=== PATIENT | male | born 1930 | race Caucasian/White ===

== ENCOUNTER 2017-07-07 11:12 | Emergency (ER) | payer OTHER ==
[~2017-07-07] VITALS: Ht 182.9 cm; Wt 93.0 kg
[2017-07-07] MEDS ORDERED: TETRACAINE HCL 0.5% OPTH SOLN 4 ML BTL OP ONE (11:15)
[2017-07-07] MEDS ORDERED: FLUORESCEIN SOD(OPTH) 1 MG STRP OP ONE (11:15)
[2017-07-07] MEDS ORDERED: TETRACAINE HCL 0.5% OPTH SOLN 4 ML BTL ONE (11:24)
[2017-07-07] MEDS ORDERED: FLUORESCEIN SOD(OPTH) 1 MG STRP ONE (11:25)
[2017-07-07] MEDS ORDERED: EYE IRRIGATION (OPTH) 120 ML BTL ONE (11:25)
== END 2017-07-07 11:51 | disposition home or self-care (01) ==
LOC: ER 11:14
DX: H11.31 Conjunctival hemorrhage, right eye (principal); S05.01XA Injury of conjunctiva and corneal abrasion without foreign body, right eye, initial encounter
CPT/HCPCS: 99283

== ENCOUNTER 2018-03-13 09:17 | Emergency (ER) | payer OTHER ==
[~2018-03-13] VITALS: Ht 182.9 cm; Wt 93.0 kg
--- OUTSIDE RECORDS SUMMARY | 2018-03-13 09:20 | XMS REPORT | Clinical Summary ---
Author Author [facility] Organization [facility] Address Unknown Phone Unavailable Care Team Providers Care Straightening Machine Feeder Name Role Phone Ricardo Rene MD PCP Allergies No Known Allergies Medications End Date Status Medication Sig Dispensed Refills Start Date Active multivitamin (THERAGRAN) Take 1 tablet 0 tablet by mouth daily. Active cyanocobalamin (VITAMIN Take 1,000 0 B-12) 1000 MCG tablet mcg by mouth daily. 10/07/2017 ofloxacin (FLOXIN) 0.3 % Administer 5 10 mL 0 otic solution drops to the 8 right ear 2 (two) times a day for 7 days. 10/07/2017 fluconazole (DIFLUCAN) Take 1 tablet 7 tablet 0 100 MG tablet (100 mg 8 total) by mouth daily for 7 days. Active Problems No known active problems Encounters Care Team Description Date Type Specialty Venus Strong MD Benign paroxysmal positional vertigo of right ear (Primary Dx) 10/14/2017 Office Visit Otolaryngology Venus Strong MD Benign paroxysmal positional vertigo of right ear (Primary Dx); Other infective acute otitis externa of right ear; Sensorineural hearing loss (SNHL) of both ears 09/30/2017 Office Visit Otolaryngology after 03/12/2017 Social History Date Tobacco Use Types Packs/Day Years Used Never Smoker Smokeless Tobacco: Never Used Alcohol Use Drinks/Week oz/Week Comments No Sex Assigned at Date Recorded Not on file Industry Job Start Date Occupation Not on file Not on file Not on file Travel End Travel History Travel Start No recent travel history available. Last Filed Vital Signs Time Taken Vital Sign Reading 10/14/2017 9:49 AM CDT Blood Pressure 143/74 10/14/2017 9:49 AM CDT Pulse 59 - Temperature - - Respiratory Rate - - Oxygen Saturation - - Inhaled Oxygen - Concentration 10/14/2017 9:49 AM CDT Weight 96.6 kg (213 lb) 10/14/2017 9:49 AM CDT Height 182.9 cm (6') 10/14/2017 9:49 AM CDT Body Mass Index 28.89 Plan of Treatment Health Maintenance Due Date Last Done Comments SHINGLES VACCINES (1 of 1980 2) PNEUMOCOCCAL 12/15/1995 POLYSACCHARIDE VACCINE AGE 65 AND OVER PNEUMOCOCCAL-13 12/15/1995 INFLUENZA VACCINE 10/23/2017 Results Not on fileafter 03/12/2017 Insurance Payer Benefit Subscriber ID Type Phone Address Plan / Group TEXAN[employer] TEXANPLUS xxxxxxxxx O [facility] Advance Directives Patient has advance care planning documents on file. For more information, irma ann contact: Jemal Walters [address] [place] [address]
--- NOTE | 2018-03-13 10:34 | Diagnostic Imaging Report ---
Exam: 2 view chest radiograph History: Cough, bronchitis Comparison: None. Findings: The lungs are well-inflated. There is patchy airspace disease in the lingula. No pleural effusion or pneumothorax. Tortuosity and atherosclerotic calcification of the thoracic aorta. Normal heart size. No pulmonary edema. No acute osseous abnormality. Impression: Patchy lingular airspace disease is concerning for pneumonia in the clinical setting of cough and suspected bronchitis. Follow-up chest radiograph in 8 weeks is suggested to document resolution after treatment. Signed by: Dr. Dennis Mullins M.D. on 03/13/2018 10:30 AM
== END 2018-03-13 11:15 | disposition home or self-care (01) ==
LOC: ER 09:17
DX: R05 Cough (principal); J15.9 Unspecified bacterial pneumonia
CPT/HCPCS: 71046; 99283

== ENCOUNTER 2018-03-28 13:08 | Inpatient (IN) | payer OTHER ==
[~2018-03-28] VITALS: Ht 182.9 cm; Wt 102.7 kg
--- OUTSIDE RECORDS SUMMARY | 2018-03-28 13:10 | XMS REPORT | Clinical Summary ---
Author Author [facility] Organization [facility] Address Unknown Phone Unavailable Care Team Providers Care Aperture Mask Etcher Name Role Phone Ricardo Rene MD PCP [...] both ears 09/30/2017 Office Visit Otolaryngology after 03/27/2017 Social History Date Tobacco Use Types Packs/Day [...] INFLUENZA VACCINE 10/23/2017 Results Not on fileafter 03/27/2017 Insurance Payer Benefit Subscriber ID Type Phone Address Plan / Group [employer] xxxxxxxxx O [facility] Advance Directives Patient has advance care planning documents on file. For more information, irma ann contact: Jemal Walters [address] [place] [address]
--- OUTSIDE RECORDS SUMMARY | 2018-03-28 13:11 | XMS REPORT ---
[facility] Address Unknown Phone Unavailable Care Team Providers Care Square Shear Operator Name Role Phone Camila VILLAFUERTE Unavailable Unavailable Problems This patient has no known problems. Allergies, Adverse Reactions, Alerts This patient has no known allergies or adverse reactions. Medications This patient has no known medications. Results Test Description Test Time Test Comments Text Results Atomic Results Result Comments CHEST 2 VIEWS 2018-03-13 10:28:00 [facility] [address] [address] Patient Name: BENJI MCNEILL JR MR #: [id number] : 1930 Age/Sex: 87/M Req #: [id number] [facility] Physician: Ordered by: STEFF VILLAFUERTE MD Report #: [id number] Location: ER Room/Bed: Procedure: [id number] DX/CHEST 2 VIEWS Exam Date: 03/13/18 Exam Time: 1010 REPORT STATUS: Signed Exam: 2 view chest radiograph History: Cough, bronch itis Comparison: None. Findings: The lungs are well-inflated. There is patchy airspace disease in the lingula. No pleural effusion or pneumothorax. Tortuosity and atherosclerotic calcification of the thoracic aorta. Normal heart size. No pulmonary edema. No acute osseous abnormality. Impression: Patchy lingular airspace disease is concerning for pneumonia in the clinical setting of cough and suspected bronchitis. Follow-up chest radiograph in 8 weeks is suggested to document resolution after treatment. Signed by: Dr. Miles Moe M.D. on 03/13/2018 10:30 AM Dictated By: MILES MOE MD 1030 Transcribed By: DANAY on 03/13/18 1030 COPY TO: STEFF VILLAFUERTE MD
[2018-03-28 17:03] LABS: BASOPHILS # (AUTO) 0.1 (0.0-0.1); EOSINOPHILS # (AUTO) 1.2 (0.0-0.4); EOSINOPHILS % 10.5 % (0.0-6.0); HEMATOCRIT 40.7 % (38.2-49.6); HEMOGLOBIN 14.2 g/dL (14.0-18.0); LYMPHOCYTES # (AUTO) 2.1 (1.0-3.2); LYMPHOCYTES % 18.7 % (18.0-39.1); MEAN CORPUSCULAR HEMOGLOBIN 29.3 pg (28-32); MEAN CORPUSCULAR HGB CONC 34.9 g/dL (31-35); MEAN CORPUSCULAR VOLUME 84.1 fL (81-99); MONOCYTES # (AUTO) 1.3 (0.2-0.8); MONOCYTES % 11.2 % (4.4-11.3); NEUTROPHILS # (AUTO) 6.5 (2.1-6.9); NEUTROPHILS % 58.2 % (38.7-80.0); PLATELET COUNT 275 x10e3/uL (140-360); RED BLOOD COUNT 4.84 x10e6/uL (4.3-5.7); RED CELL DISTRIBUTION WIDTH 17.7 % (11.7-14.4)
[2018-03-28 17:25] LABS: INR 0.98; PROTHROMBIN TIME 13.9 seconds (11.9-14.5)
[2018-03-28] MEDS ORDERED: PROPOFOL IV EMULSION 10 MG/ML 20 ML VIAL ONE (17:25)
[2018-03-28] MEDS ORDERED: GLYCOPYRROLATE INJ 1MG/ 5 ML SYR ONE (17:25)
[2018-03-28] MEDS ORDERED: DEXAMETHASONE SOD PHOS INJ 4 MG/ML VIAL ONE (17:25)
[2018-03-28] MEDS ORDERED: NEOSTIGMINE 5 MG/5ML SYR ONE (17:25)
[2018-03-28] MEDS ORDERED: DESFLURANE 240 ML BTL INH ONE (17:25)
[2018-03-28] MEDS ORDERED: ONDANSETRON HCL INJ 2 MG/ML VIAL ONE (17:25)
[2018-03-28] MEDS ORDERED: LIDOCAINE HCL 2% LOCAL INJ 5 ML SDV VIAL INJ ONE (17:25)
[2018-03-28] MEDS ORDERED: ROCURONIUM BROMIDE 10 MG/ML 5ML VIAL ONE (17:25)
[2018-03-28 17:26] LABS: PARTIAL THROMBOPLASTIN TIME 35.7 seconds (23.8-35.5)
[2018-03-28 17:34] LABS: ALANINE AMINOTRANSFERASE 270 IU/L (0-55); ALBUMIN 3.2 g/dL (3.5-5.0); ALBUMIN/GLOBULIN RATIO 0.7 (0.8-2.0); ALKALINE PHOSPHATASE 823 IU/L (40-150); ANION GAP 14.2 mmol/L (8-16); BLOOD UREA NITROGEN 18 mg/dL (7-26); BUN/CREATININE RATIO 20 (6-25); CALCIUM 9.7 mg/dL (8.4-10.2); CARBON DIOXIDE 24 mmol/L (22-29); CHLORIDE 100 mmol/L (98-107); CREATININE, SERUM 0.88 mg/dL (0.72-1.25); EST GLOMERULAR FILTRATION RATE > 60 ML/MIN (60-); GLUCOSE 105 mg/dL (74-118); POTASSIUM 3.2 mmol/L (3.5-5.1); SODIUM 135 mmol/L (136-145)
--- NOTE | 2018-03-28 17:57 | NUR ---
PATIENT TAKEN DIRECTLY TO CT FROM WAITING ROOM , THEN PLACED IN ROOM AT 1817
--- NOTE | 2018-03-28 19:37 | Diagnostic Imaging Report ---
EXAM: CT Abdomen and Pelvis WITH contrast INDICATION: ^Jaundice, Abdominal pain ^[id number] ^1809 COMPARISON: None. TECHNIQUE: Abdomen and pelvis were scanned utilizing a multidetector helical scanner from the lung base to the pubic symphysis after administration of IV contrast. Coronal and sagittal reformations were obtained. Dose modulation, iterative reconstruction, and/or weight based adjustment of the mA/kV was utilized to reduce the radiation dose to as low as reasonably achievable. Routine protocol was performed. Scan was performed when during portal venous phase. IV CONTRAST: 100 mL of Isovue-370 ORAL CONTRAST: Water COMPLICATIONS: None RADIATION DOSE: Total DLP: 886.26 mGy*cm Estimated effective dose: (DLP x 0.015 x size factor) mSv CTDIvol has been reviewed. It is below the limits set by the Radiation Protocol Committee (RPC). FINDINGS: LINES and TUBES: None. LOWER THORAX: Bibasilar linear atelectasis/scarring. HEPATOBILIARY: No focal hepatic lesions. No biliary ductal dilation. GALLBLADDER: Filled with sludge and small gallstones. No wall thickening. SPLEEN: No splenomegaly. PANCREAS: No focal masses or ductal dilatation. ADRENALS: No adrenal nodules KIDNEYS/URETERS: Kidneys enhance symmetrically. No hydronephrosis. No renal mass. Subcentimeter hypodensities which are too small to characterize. No stones. GI TRACT: No abnormal distention, wall thickening, or evidence of bowel obstruction. There are diverticula within the colon without evidence of diverticulitis. Appendix is normal. PELVIC ORGANS/BLADDER: Prominent prostate gland with median lobe hypertrophy and coarse calcifications. Bladder wall thickening. LYMPH NODES: No lymphadenopathy. VESSELS: There is mild atherosclerotic disease in the aorta and major arterial branches. PERITONEUM / RETROPERITONEUM: No free air or fluid. BONES: Left femoral head sclerotic focus, likely bone island. Scoliosis of the lumbar spine with multilevel advanced degenerative changes. L5 pars defects with grade 1 L5-S1 spondylolisthesis. There is loss of L5-S1 disc space. SOFT TISSUES: Unremarkable. IMPRESSION: 1. Gallbladder sludge and small gallstones. No CT evidence of cholecystitis. 2. Colonic diverticulosis without evidence of diverticulitis. 3. Prominent prostate gland. Mild bladder wall thickening could be due to chronic outflow obstruction versus cystitis in the appropriate clinical setting. Signed by: Dr. Emeterio Temple MD on 03/28/2018 7:33 PM
--- NOTE | 2018-03-28 19:43 | Diagnostic Imaging Report ---
EXAM: CT Chest WITH contrast 03/28/2018 1:56 PM INDICATION: ^HIckups , requested by patient's PCP ^[id number] ^1810 COMPARISON: Chest x-ray dated 03/13/2018 TECHNIQUE: Chest was scanned utilizing a multidetector helical scanner from the lung apex through the level of the adrenal glands without administration of IV contrast. Coronal and sagittal reformations were obtained. Routine protocol was performed. IV CONTRAST: 100 mL of Isovue-370 COMPLICATIONS: None RADIATION DOSE: Total DLP: 886.26 mGy*cm Estimated effective dose: (DLP x 0.014 x size factor) mSv CTDIvol has been reviewed. It is below the limits set by the Radiation Protocol Committee (RPC). FINDINGS: LINES/ TUBES: None. LUNGS AND AIRWAYS: Mild biapical scarring. Cluster of tiny inferior right upper lobe tree-in-bud nodules (series 4, image 66). Mild bronchial wall thickening. Mild bilateral lower lobe linear atelectasis/scarring. Airways are normal. PLEURA: The pleural spaces are clear. HEART AND MEDIASTINUM: The thyroid gland is normal. No mediastinal, hilar or axillary lymphadenopathy. The heart is normal in size.. There is no pericardial effusion. There are mild atherosclerotic calcifications in the aorta and coronary arteries. UPPER ABDOMEN: Unremarkable. BONES: Degenerative changes of thoracic spine. SOFT TISSUES: Unremarkable. IMPRESSION: Mild bronchial wall thickening and a small cluster of tiny probably tree-in-bud nodules in right upper lobe, concerning for mild infectious/inflammatory process. Signed by: Dr. Emeterio Temple MD on 03/28/2018 7:40 PM
[2018-03-28 20:19] LABS: AMYLASE 91 U/L (25-125); LIPASE 29 U/L (8-78)
[2018-03-28] MEDS ORDERED: MORPHINE SULFATE 2 MG/ML SYR IV PRN (21:45)
[2018-03-28] MEDS ORDERED: ONDANSETRON HCL INJ 2 MG/ML VIAL IV PRN (21:45)
[2018-03-28] MEDS ORDERED: IOPAMIDOL 370 MG/ML 200 ML INFUS..BTL INJ ONE (21:58)
[2018-03-28] MEDS ORDERED: SODIUM CHLORIDE 0.9% 50ML 50 ML ONE (21:58)
[2018-03-28] MEDS ORDERED: MORPHINE SULFATE INJ 4 MG/ML INJ IV PRN (22:00)
--- OUTSIDE RECORDS SUMMARY | 2018-03-28 22:26 | XMS REPORT | Clinical Summary ---
Author Author [facility] Organization [facility] Address Unknown Phone Unavailable Care Team Providers Care Saw Repairer Name Role Phone Ricardo Rene MD PCP [...] Plan / Group [employer] TEX[employer] xxxxxxxxx O [facility] Advance Directives Patient has advance care planning documents on file. For more information, irma ann contact: Jemal Walters [address] [place] [address]
--- NOTE | 2018-03-28 22:55 | NUR ---
received patient aaox3, jaundiced, skin intact, small scab/abrasion to left calf. denies any pain. breathing is even and unlabored on RA. per ER, all STAT consults have been called. patient denies any PMH, except episode of vertigo. see chart for PSH. denies any home medications. denies any allergies to medications or food. updated on plan of care. patient understands NPO after midnight status. no needs voiced at this time. bed locked, lowest position, call light within easy reach, bed alarm on. fall risk band applied, yellow non-slip socks applied. encouraged to call for assistance as needed, patient verbalized understanding. will continue to monitor the patient.
[2018-03-28] MEDS: SODIUM CHLORIDE 0.9% 1000ML 1,000 ML IV SCH (23:00)
[2018-03-28] MEDS: PIPER-TAZ 3.375 GM 50 ML IV SCH (23:00)
[2018-03-28 23:12] VITALS: BP 146/75
[2018-03-28 23:22] VITALS: BP 146/75
[2018-03-29] VITALS (8 sets, daily range): BP systolic 121–166; BP diastolic 61–76
[2018-03-29] MEDS: PIPER-TAZ 3.375 GM 50 ML IV SCH ×3 (05:33→21:49)
[2018-03-29 06:11] LABS: BASOPHILS # (AUTO) 0.1 (0.0-0.1); EOSINOPHILS # (AUTO) 1.3 (0.0-0.4); HEMATOCRIT 35.8 % (38.2-49.6); HEMOGLOBIN 12.6 g/dL (14.0-18.0); LYMPHOCYTES # (AUTO) 1.6 (1.0-3.2); LYMPHOCYTES % 16.8 % (18.0-39.1); MEAN CORPUSCULAR HGB CONC 35.2 g/dL (31-35); MEAN CORPUSCULAR VOLUME 82.3 fL (81-99); MONOCYTES # (AUTO) 1.2 (0.2-0.8); MONOCYTES % 11.8 % (4.4-11.3); NEUTROPHILS # (AUTO) 5.5 (2.1-6.9); NEUTROPHILS % 56.8 % (38.7-80.0); PLATELET COUNT 257 x10e3/uL (140-360); RED BLOOD COUNT 4.35 x10e6/uL (4.3-5.7); RED CELL DISTRIBUTION WIDTH 17.6 % (11.7-14.4)
[2018-03-29 06:35] LABS: ALANINE AMINOTRANSFERASE 201 IU/L (0-55); ALBUMIN 2.4 g/dL (3.5-5.0); ALBUMIN/GLOBULIN RATIO 0.7 (0.8-2.0); ALKALINE PHOSPHATASE 635 IU/L (40-150); ANION GAP 11.2 mmol/L (8-16); BLOOD UREA NITROGEN 16 mg/dL (7-26); BUN/CREATININE RATIO 20 (6-25); CALCIUM 8.8 mg/dL (8.4-10.2); CARBON DIOXIDE 24 mmol/L (22-29); CHLORIDE 105 mmol/L (98-107); CREATININE, SERUM 0.82 mg/dL (0.72-1.25); EST GLOMERULAR FILTRATION RATE > 60 ML/MIN (60-); GLUCOSE 100 mg/dL (74-118); POTASSIUM 3.2 mmol/L (3.5-5.1); SODIUM 137 mmol/L (136-145)
[2018-03-29] MEDS ORDERED: POTASSIUM CHLORIDE 20MEQ/100ML 100 ML IV ONE (07:15)
[2018-03-29] MEDS: SODIUM CHLORIDE 0.9% 1000ML 1,000 ML IV SCH ×3 (07:30→21:34)
--- NOTE | 2018-03-29 09:01 | History and Physical ---
This is a patient that came to the office with jaundice. HISTORY OF PRESENT ILLNESS: This is Mr. Frederic Patterson with no significant past medical history except for osteoarthritis. 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 He was in his usual state of health until 2 days prior to admission. The patient came to the office with intractable cough and hiccups and the patient also was found to be jaundiced . Labs were done in the office. The patient's hemoglobin was 14. The patient came in and was admitted for obstructive jaundice. PAST MEDICAL HISTORY: Noncontributory. SURGICAL HISTORY: He had tonsillectomy in the past. MEDICATIONS: None. He does take some vitamins. SOCIAL HISTORY: No ETOH. No IV drug abuse. He does not smoke. REVIEW OF SYSTEMS: Negative for chest pain. Positive for cough. Positive for nausea. No vomiting. No diarrhea. No constipation. Positive for hiccups. Possible for recent treatment for bronchitis for cough. No rectal bleeding. No hematochezia. No hematemesis. Positive for dark urine and white-colored stools. FAMILY HISTORY: Noncontributory. PHYSICAL EXAMINATION VITAL SIGNS: Temperature is 97, pulse 72, blood pressure 134/62, and pulse oximetry of 98%. HEENT: Positive for icterus. CVS: S1, S2 normal. Regular rhythm. ABDOMEN: Nontender, nondistended. EXTREMITIES: No clubbing, no cyanosis, no edema. MUSCULOSKELETAL SYSTEM: Multiple arthritic joints. Knee joints are fluid-filled and also with tenderness. LABORATORY VALUES: Initial white count was 11,000 with a hemoglobin of 14.2 and hematocrit of 40.2 with no left shift present. Chemistry shows sodium of 137, potassium of 3.2, BUN of 16, creatinine of 0.82, total bilirubin was 21.4 and is down to 15.4 today. ALT was 270 and it is down to 201, AST 220 down to 160. The patient's amylase and lipase 91 and 29. Coags were PT 13.9, INR 0.9. PTT was 35.7. IMAGING STUDIES: CT of the chest shows mild bronchial wall thickening and small tree-in-bud nodules concerning mild infectious inflammatory process. The patient's abdominal CT and pelvis CT shows gallbladder sludge and small gallstones. No CT evidence of cholecystitis. Colonic diverticulosis without evidence of diverticulitis. Prominent prostate gland. Bladder wall thickening could be due to chronic outflow obstruction and scoliosis of lumbar spine with multilevel degenerative disease. ASSESSMENT 1. Cholecystitis. 2. Jaundice. 3. Gallbladder stones with sludge. PLAN: Plan would be to consult Surgery, possibly will need a cholecystectomy. MRCP is ordered to review the biliary tree. The patient also has consulted with Dr. Kimball, might need an ERCP depending on the findings of MRCP. The patient's bilirubin is in the down trend. We will continue watching his LFTs and also hepatitis panel has been ordered. Further recommendation per clinical course. We will continue to monitor the patient along with consultants. Job#: [id number] JOYCE
--- NOTE | 2018-03-29 09:40 | NUR ---
assessment complete no distress noted, updated on poc voiced understanding, denies pain at this time, ivf infusing to r ac 20g no ss of infiltration noted, no other co voiced call light in reach will continue to monitor
--- NOTE | 2018-03-29 12:00 | NUR ---
pt having ultrasound of abdomen at bedside,
--- NOTE | 2018-03-29 12:30 | NUR ---
pt states that a doctor informed him he cannot have an mri, pt refused mri at this time,
[2018-03-29] MEDS ORDERED: GADOBENATE DIMEGLUMINE 1 ML IV ONE (12:42)
--- NOTE | 2018-03-29 13:15 | Consultation ---
DATE OF CONSULTATION: March 29, 2018 REFERRING PHYSICIAN: Dr. Ricardo Rene. HISTORY OF PRESENT ILLNESS: Patient is an 87-year-old male who presents with complaints of jaundice and cough and also some abdominal pain. Patient says he has had cough for about a month. He lost some weight because he had a decreased appetite about 6 pounds. He was noted to be jaundiced by his primary care physician and was referred to the hospital, found to have a bilirubin level of 21. Patient says he has some left-sided abdominal pain. No back pain. Evaluation in the emergency room with imaging revealed gallstones with sludge in the gallbladder, but no dilated bile ducts. Patient has not had any fever. He denies any right-sided abdominal pain. PAST MEDICAL HISTORY: Significant for previous tonsillectomy and knee surgery. ALLERGIES: HE HAS NO KNOWN ALLERGIES. MEDICATIONS: There were no medications at home. FAMILY HISTORY: Noncontributory. SOCIAL HISTORY: The patient smokes cigarettes, not drink alcohol. REVIEW OF SYSTEMS: As stated above, otherwise was negative. PHYSICAL EXAMINATION VITAL SIGNS: Normal. He is not tachycardic. HEENT: Revealed scleral icterus. NECK: No masses. LUNGS: Equal breath sounds are clear bilaterally. CARDIAC: Shows regular rate and rhythm. ABDOMEN: Mildly distended, soft with no tenderness. No palpable mass. EXTREMITIES: No edema. NEUROLOGIC: Grossly intact. LAB TESTS: White blood cell count on admission was 11.2, repeat is 9.7, hemoglobin 14.2, and hematocrit 40.7. Chemistries significant for elevated bilirubin of 21 on admission, repeat is 15.4. Alkaline phosphatase was 823, down to [address] of the abdomen and pelvis reveals stones and sludge in the gallbladder with no mass seen in the pancreas. Bile ducts were noted to be dilated. ASSESSMENT AND PLAN: An 87-year-old male with jaundice, minimal abdominal pain. Etiology is not clear. This lab test more suggestive of an obstructive jaundice. Agree with plan to evaluate the MRCP and further recommendations to come after this has been done. Thank you for asking me to see Mr. Patterson. Job#: [id number] EMMIE
--- NOTE | 2018-03-29 13:41 | Diagnostic Imaging Report ---
HISTORY: Gallstones, elevated LFTs TECHNIQUE: Selected static images from complete abdominal ultrasound provided for INTERPRETATION: COMPARISON: CT abdomen/pelvis 03/28/2018 FINDINGS: Pancreas: Poorly visualized due to bowel gas. Liver: Measures 16.8 cm in sagittal plane. The echotexture is increased. No mass in the visualized portions. Portal Vein: Measures 1.2 cm. Hepatopetal flow on spectral Doppler interrogation. Biliary Tree: Normal Gallbladder: Present, distended and is filled with nonmobile gallstones. No gallbladder wall thickening or pericholecystic fluid. CBD: 0.4 cm. Right Kidney: Length is 9.8 cm. Echotexture is normal. No mass or hydronephrosis. Left Kidney: Length is 11.0 cm. Echotexture is normal. No mass or hydronephrosis. Spleen: 8.9 cm in length. No evidence for mass. Proximal Aorta: 1.8 cm. The remainder of the aorta cannot be visualized due to bowel gas. IVC: Patent No free fluid IMPRESSION: 1. Distended gallbladder containing nonmobile gallstones. No sonographic evidence of acute cholecystitis. Normal biliary tree. 2. Increased hepatic echotexture suggestive of hepatocellular dysfunction, most commonly steatosis. 3. Nonvisualization of the pancreas due to bowel gas. Signed by: Dr. Jazzy Benedict MD on 03/29/2018 1:38 PM
[2018-03-29] MEDS ORDERED: SINCALIDE 3 MCG/VIAL INJ ONE (15:08)
--- NOTE | 2018-03-29 16:00 | NUR ---
down to nuclear medicine for hida scan
--- NOTE | 2018-03-29 16:08 | Consultation ---
DATE OF CONSULTATION: CHIEF COMPLAINT: Jaundice. HISTORY OF PRESENT ILLNESS: A very pleasant 87-year-old man coming with jaundice, bilirubin of 21, elevated alkaline phosphatase. The patient has gallstones on ultrasound. No dilation of the CBD. He was supposed to have an MRI; however, he has an artificial knee. The patient denies pain in the right upper quadrant. He denies fever. He reports noticing jaundice may be a couple of days ago; however, he had dark urine up to 3 weeks ago. PAST MEDICAL HISTORY: Noncontributory. PAST SURGICAL HISTORY: Tonsillectomy. MEDICATIONS: She takes some vitamins. SOCIAL HISTORY: The patient has no toxic habits. REVIEW OF SYSTEMS: He has left-sided pain, cough, jaundice. PHYSICAL EXAMINATION VITAL SIGNS: Blood pressure 140/80, pulse 80, temperature 98. GENERAL: A well nourished white man in no distress. HEENT: No pallor. ABDOMEN: Soft. Nontender at this time. EXTREMITIES: No edema. NEUROLOGIC: Nonfocal. ASSESSMENT AND PLAN: Jaundice. No dilation of the bile ducts and unclear if this is related to bile duct obstruction. The patient does not appear to be able to have an MRI as he reports having an artificial knee. We will do ultrasound and HIDA scan and follow LFTs. Certainly, jaundice could be related to acute hepatitis. Depending on this result, we will consider an ERCP and also depending on the evidence of worsening or improving jaundice. Job#: [id number] JOYCE
--- NOTE | 2018-03-29 18:40 | Diagnostic Imaging Report ---
HEPATOBILIARY SCAN INDICATION: 87 M with abdominal pain, gallstones and elevated liver function tests Report: Following the administration of 6.8 mCi of Tc-99m mebrofenin, dynamic images of the abdomen in the anterior projection were obtained through 60 minutes. Additional static image was obtained at 90 minutes. Perfusion of the liver is normal. Extraction of tracer from the blood pool by the liver parenchyma is markedly prolonged. Tracer does not appear in the biliary tract through 90 minutes of imaging. Impression: 1. Scan finding are compatible with impaired hepatocyte function and cholestasis, likely of metabolic etiology. 2. Gallbladder filling cannot be assessed because no tracer appears in the biliary tract. Signed by: Dr. Luz Rich M.D. on 03/29/2018 6:37 PM
--- NOTE | 2018-03-29 18:47 | NUR ---
back to ivf reconnected, call light in reach will continue ot monitor
--- NOTE | 2018-03-29 18:56 | NUR ---
paged dr cameron reynaga scan results awaiting call back
--- NOTE | 2018-03-29 19:10 | NUR ---
spoke with dr barnes re: hita scan results, and diet, new orders noted
--- NOTE | 2018-03-29 20:20 | NUR ---
Assisted pt to the toilet. Pt voided. Post void residual less than 25cc using the bladder scanner.
[2018-03-30] VITALS (7 sets, daily range): BP systolic 118–148; BP diastolic 62–71
[2018-03-30] MEDS: SODIUM CHLORIDE 0.9% 1000ML 1,000 ML IV SCH ×3 (05:00→21:43)
[2018-03-30] MEDS: PIPER-TAZ 3.375 GM 50 ML IV SCH ×3 (05:35→21:43)
[2018-03-30 06:07] LABS: BASOPHILS # (AUTO) 0.1 (0.0-0.1); BASOPHILS % 1.1 % (0.0-1.0); EOSINOPHILS # (AUTO) 1.4 (0.0-0.4); EOSINOPHILS % 13.2 % (0.0-6.0); HEMATOCRIT 33.9 % (38.2-49.6); LYMPHOCYTES # (AUTO) 1.6 (1.0-3.2); LYMPHOCYTES % 15.2 % (18.0-39.1); MEAN CORPUSCULAR HEMOGLOBIN 29.3 pg (28-32); MEAN CORPUSCULAR HGB CONC 35.4 g/dL (31-35); MEAN CORPUSCULAR VOLUME 82.7 fL (81-99); MONOCYTES # (AUTO) 1.1 (0.2-0.8); MONOCYTES % 10.4 % (4.4-11.3); NEUTROPHILS # (AUTO) 6.4 (2.1-6.9); NEUTROPHILS % 59.6 % (38.7-80.0); PLATELET COUNT 258 x10e3/uL (140-360); RED CELL DISTRIBUTION WIDTH 18.4 % (11.7-14.4)
[2018-03-30 06:38] LABS: ALANINE AMINOTRANSFERASE 170 IU/L (0-55); ALBUMIN 2.1 g/dL (3.5-5.0); ALBUMIN/GLOBULIN RATIO 0.7 (0.8-2.0); ALKALINE PHOSPHATASE 558 IU/L (40-150); ANION GAP 11.3 mmol/L (8-16); BLOOD UREA NITROGEN 20 mg/dL (7-26); BUN/CREATININE RATIO 25 (6-25); CALCIUM 8.6 mg/dL (8.4-10.2); CARBON DIOXIDE 21 mmol/L (22-29); CHLORIDE 106 mmol/L (98-107); CREATININE, SERUM 0.79 mg/dL (0.72-1.25); EST GLOMERULAR FILTRATION RATE > 60 ML/MIN (60-); GLUCOSE 95 mg/dL (74-118); POTASSIUM 3.3 mmol/L (3.5-5.1); SODIUM 135 mmol/L (136-145)
[2018-03-30] MEDS ORDERED: POTASSIUM CHLORIDE 10MEQ EA PO ONE (07:30)
[2018-03-30 07:38] LABS: ALBUMIN 2.1 g/dL (3.5-5.0)
[2018-03-30 07:40] LABS: BILIRUBIN,DIRECT 10.6 mg/dL (0.0-0.5)
--- NOTE | 2018-03-30 07:57 | Progress Note ---
DATE: SUBJECTIVE: Patient is here for jaundice and gallstones. The patient continues to be icteric. No complaints from the patient. No chest pains, no shortness of breath, had a HIDA scan yesterday, and resumed oral diet yesterday. PHYSICAL EXAMINATION VITAL SIGNS: Temperature is 97.9, respirations of 18, blood pressure is 125/63, and pulse oximetry of 95%. HEENT: Positive for icterus. CVS: S1, S2 normal. Regular rhythm. ABDOMEN: Nontender and nondistended. EXTREMITIES: No clubbing, no cyanosis, and no edema. LABORATORY VALUES: White count is 10.66, down from 11.9, left shift absent. The patient's neutrophil count is 6.4. Coags are normal. Chemistries; sodium is 135, potassium of 3.3, BUN 20, creatinine of 0.79, bilirubin is hanging at 15.1, AST 142, ALT 170, and alkaline phosphates at 558, trending down. Amylase and lipase are normal. The patient's HIDA scan shows findings compatible with impaired hepatocellular function and cholestasis, likely of metabolic etiology. Gallbladder filling cannot be assessed because in the biliary tract. Abdominal ultrasound shows distended gallbladder containing non-mobile gallstones. No sonographic evidence of acute cholecystitis, normal biliary tree. Increased hepatic echotexture suggestive of hepatocellular dysfunction, most commonly steatosis. Non-visualization of the pancreas due to bowel gas. ASSESSMENT AND PLAN: Cholelithiasis, acute cholecystitis, and possible biliary stasis. The patient needs an MRCP or ERCP, also gallbladder to be taken out. Surgery has been consulted and also I consult with Dr. Kimball to do possible ERCP in the morning and possible angioscopic cholecystectomy lateral on. Further recommendations as per clinical course. We will continue to monitor the patient along with the consultants. Job#: [id number] PSO
--- NOTE | 2018-03-30 08:08 | NUR ---
assessment complete no distress noted,updated on poc voiced understanding, denies pain at this time, ivf infusing to r ac 20g no ss of infiltration noted, no other co voiced call light in reach will continue to monitor
[2018-03-31] VITALS (7 sets, daily range): BP systolic 109–153; BP diastolic 56–76
[2018-03-31] MEDS: SODIUM CHLORIDE 0.9% 1000ML 1,000 ML IV SCH ×3 (05:47→19:08)
[2018-03-31] MEDS: PIPER-TAZ 3.375 GM 50 ML IV SCH ×3 (05:47→22:31)
[2018-03-31 06:13] LABS: BASOPHILS # (AUTO) 0.1 (0.0-0.1); BASOPHILS % 0.9 % (0.0-1.0); EOSINOPHILS # (AUTO) 1.5 (0.0-0.4); EOSINOPHILS % 14.9 % (0.0-6.0); HEMOGLOBIN 11.9 g/dL (14.0-18.0); LYMPHOCYTES # (AUTO) 1.8 (1.0-3.2); LYMPHOCYTES % 17.3 % (18.0-39.1); MEAN CORPUSCULAR HEMOGLOBIN 28.8 pg (28-32); MEAN CORPUSCULAR VOLUME 82.3 fL (81-99); NEUTROPHILS # (AUTO) 5.8 (2.1-6.9); NEUTROPHILS % 56.3 % (38.7-80.0); PLATELET COUNT 271 x10e3/uL (140-360); RED BLOOD COUNT 4.13 x10e6/uL (4.3-5.7); RED CELL DISTRIBUTION WIDTH 18.9 % (11.7-14.4)
[2018-03-31 06:43] LABS: BAND NEUTROPHILS % (MANUAL) 2 %; EOSINOPHILS % (MANUAL) 14 % (0-7); LYMPHOCYTES % (MANUAL) 11 % (19-48); MONOCYTES % (MANUAL) 12 % (3.4-9.0); NEUTROPHILS % (MANUAL) 61 % (40-74)
[2018-03-31 06:44] LABS: ALANINE AMINOTRANSFERASE 160 IU/L (0-55); ALBUMIN/GLOBULIN RATIO 0.6 (0.8-2.0); ALKALINE PHOSPHATASE 533 IU/L (40-150); ANION GAP 10.8 mmol/L (8-16); ANISOCYTOSIS F; BLOOD UREA NITROGEN 15 mg/dL (7-26); BUN/CREATININE RATIO 20 (6-25); CALCIUM 8.3 mg/dL (8.4-10.2); CARBON DIOXIDE 22 mmol/L (22-29); CHLORIDE 109 mmol/L (98-107); CREATININE, SERUM 0.75 mg/dL (0.72-1.25); EST GLOMERULAR FILTRATION RATE > 60 ML/MIN (60-); GLUCOSE 98 mg/dL (74-118); PLATELET ESTIMATE ADEQUATE; PLATELET MORPHOLOGY COMMENT NORMAL; POIKILOCYTOSIS S; POTASSIUM 3.8 mmol/L (3.5-5.1); RBC MORPHOLOGY COMMENT ABNORMAL; SODIUM 138 mmol/L (136-145)
--- NOTE | 2018-03-31 06:47 | Progress Note ---
DATE: Patient is here for obstructive jaundice, elevated LFTs and benign prostatic hypertrophy. Patient is to undergo MRCP today, and has no complaints except for continuous hiccups. No chest pains. No shortness of breath. No nausea, vomiting or diarrhea. OBJECTIVE VITAL SIGNS: Temperature is 96.6, pulse of 77, respirations of 18, blood pressure is 153/70. HEENT: Normocephalic. Positive for icterus. CV: S1 and S2 normal. ABDOMEN: Nontender and nondistended. EXTREMITIES: No clubbing. No cyanosis. No edema. LABORATORY VALUES: Patient's white count is 10.32, hemoglobin of 11.9, hematocrit of 34. No left shift present. Chemistries are pending. Yesterday's total bilirubin was 15. AST and ALT are downtrending at 140 and 171. Alkaline phosphatase also trending down at 565. Total protein 5.2. Serology and hepatitis are pending. ASSESSMENT: Obstructive jaundice with sludge in the gallbladder in the biliary tree. Scheduled for an magnetic resonance cholangiopancreatography today and possible cholecystectomy tomorrow. Further recommendations per clinical course. Will continue monitoring the patient along with the consultants. Job#: [id number] MARYAM
--- NOTE | 2018-03-31 07:42 | NUR ---
Received patient. Patient resting in bed no signs of distress noted at this time. Bed in lowest position, wheels locked, side rails up x2, call light in reach.
--- NOTE | 2018-03-31 09:10 | NUR ---
Patient left to radiology
--- NOTE | 2018-03-31 09:38 | NUR ---
Patient A/O X3, breathing even and unlabored, no signs of distress. No complaints of pain or discomfort. Skin intact and jaundiced. Small scab to left lateral calf. Bilateral non-pitting 1+ ankle edema. Bowel sounds present, last bowel movement 03/30/18. Patient is up with assist, non-skid socks on patient.
--- NOTE | 2018-03-31 14:04 | NUR ---
CASE MANAGEMENT INITIAL ASSESSMENT Operating Engineer to bedside to discuss plan of care with patient/family. CM/SW role and care transitions discussed. Anticipated discharge plan discussed along with duration of care. CM discussed patients right to make decisions in care. CM/SW work hours given. Patient lives: PATIENT LIVES WITH IN 1 STORY HOME Admit/Transfer: ED POA/Emergency contact: MARLEN MCNEILL [phone] Current/Previous Home Health: NONE AT THIS TIME PCP/Follow-up Care: DR. ISSA DRIVER Current/Previous DME: FAN Other Services: NONE AT THIS TIME Employment Status: UNEMPLOYED Areas of Concerns: NONE Referral Needs: NONE AT THIS TIME Education Needs: NONE AT THIS TIME IMM/CARROLL given and signed (if applicable): YES Goal for discharge: DISCHARGE HOME WITH NO NEEDS CM left business card at the bedside with contact information. Name and number was also written on the patients whiteboard. Patient verbalized understanding of discussion. CM will follow-up with ongoing discharge and transition of care needs.
[2018-03-31] MEDS ORDERED: HYDROCORTISONE 1% CREAM 30 GM TUBE TOP PRN (15:15)
--- NOTE | 2018-03-31 16:28 | Diagnostic Imaging Report ---
MRCP CPT code: 12113 History: Abdominal pain, nausea, jaundice for 3 weeks Comparison: CT abdomen/pelvis 03/28/2018, HIDA scan in 03/29/2018, abdominal ultrasound 03/29/2018 Technique: Multiplanar, multisequence images of the abdomen were obtained per MRCP protocol. 3D volume rendered reformation images of the biliary tree were performed. No intravenous gadolinium was administered. Findings: Images are motion degraded. No enlarged intrahepatic or extra hepatic bile ducts. The common bile duct measures 4 mm and tapers as it approaches the ampulla. No intraluminal filling defects to suggest choledocholithiasis. The pancreas duct is not dilated. The gallbladder is present and filled with gallstones measuring up to 17 mm. The gallbladder pope are thickened and mildly edematous, particularly at the neck. There is no evidence of pericholecystic fluid. Liver: No mass. The liver is normal in size. Spleen: Normal size and signal. No mass. Pancreas: No mass Kidneys: No hydronephrosis. There are a few subcentimeter peripelvic cysts in each kidney. Adrenal glands: No mass Lymph nodes: No enlarged abdominal retroperitoneal lymph nodes. Bowel: Stomach and small bowel are normal in diameter with normal wall thickness. Moderate burden of stool in the colon. Peritoneum/retroperitoneum: No free fluid or fluid collection. Lung bases: Clear. Bones: Stable levoscoliosis of the lumbar spine. There is height loss of the L3 vertebral body without increased T2 signal. Soft tissues: Unremarkable. IMPRESSION: 1. No evidence of choledocholithiasis or intrahepatic or extrahepatic biliary duct dilatation. Normal pancreas duct. 2. Large burden of prominent gallstones with edema of the gallbladder wall. Please correlate for signs/symptoms of acute cholecystitis. Thank you for your referral. Signed by: Dr. Jazzy Benedict MD on 03/31/2018 4:25 PM
--- NOTE | 2018-03-31 16:57 | NUR ---
[facility] for [facility] to be NPO at midnight.
--- NOTE | 2018-03-31 17:13 | NUR ---
Notified Dr. Rene of patient complaint of small red bumps spread throughout the back that is itching patient. Placed order for hydrocortisone cream.
--- NOTE | 2018-03-31 17:50 | NUR ---
Applied hydrocortisone cream to patients back.
[2018-04-01] VITALS (7 sets, daily range): BP systolic 127–162; BP diastolic 60–76
[2018-04-01] MEDS: SODIUM CHLORIDE 0.9% 1000ML 1,000 ML IV SCH (04:25)
[2018-04-01] MEDS: PIPER-TAZ 3.375 GM 50 ML IV SCH ×3 (06:03→22:33)
[2018-04-01 06:26] LABS: BASOPHILS # (AUTO) 0.1 (0.0-0.1); BASOPHILS % 1.1 % (0.0-1.0); EOSINOPHILS # (AUTO) 1.4 (0.0-0.4); EOSINOPHILS % 13.1 % (0.0-6.0); HEMATOCRIT 33.3 % (38.2-49.6); HEMOGLOBIN 11.7 g/dL (14.0-18.0); LYMPHOCYTES % 18.9 % (18.0-39.1); MEAN CORPUSCULAR HGB CONC 35.1 g/dL (31-35); MEAN CORPUSCULAR VOLUME 82.4 fL (81-99); NEUTROPHILS # (AUTO) 6.1 (2.1-6.9); NEUTROPHILS % 57.2 % (38.7-80.0); PLATELET COUNT 279 x10e3/uL (140-360); RED BLOOD COUNT 4.04 x10e6/uL (4.3-5.7); RED CELL DISTRIBUTION WIDTH 19.6 % (11.7-14.4)
[2018-04-01 06:48] LABS: ALANINE AMINOTRANSFERASE 153 IU/L (0-55); ALBUMIN 2.1 g/dL (3.5-5.0); ALBUMIN/GLOBULIN RATIO 0.6 (0.8-2.0); ALKALINE PHOSPHATASE 541 IU/L (40-150); ANION GAP 10.9 mmol/L (8-16); BLOOD UREA NITROGEN 14 mg/dL (7-26); BUN/CREATININE RATIO 18 (6-25); CALCIUM 8.4 mg/dL (8.4-10.2); CARBON DIOXIDE 21 mmol/L (22-29); CHLORIDE 110 mmol/L (98-107); CREATININE, SERUM 0.78 mg/dL (0.72-1.25); EST GLOMERULAR FILTRATION RATE > 60 ML/MIN (60-); GLUCOSE 96 mg/dL (74-118); POTASSIUM 3.9 mmol/L (3.5-5.1); SODIUM 138 mmol/L (136-145)
--- NOTE | 2018-04-01 07:33 | NUR ---
Received patient and walking rounds complete. Patient awake resting in bed, informed patient of laparoscopic cholecystectomy, possible open cholecystectomy, and liver biopsy procedure today and completed informed consent paperwork. Bed in lowest position, wheels locked, side rails up x2, call light in reach.
--- NOTE | 2018-04-01 07:49 | Progress Note ---
DATE: SUBJECTIVE: Patient is here for elevated LFTs, jaundice, and gallstones. Patient has complaints of itching on the lower back and also on the upper back, was given hydrocortisone, it did help the itching. The rash still remains. Patient looks less jaundiced today. Currently on Zosyn. PHYSICAL EXAMINATION: VITAL SIGNS: Temperature is 97.9, pulse oximetry 96%, respiration of 21, blood pressure is 136/67. HEENT: Normocephalic, atraumatic. Icterus is present. CVS: S1, S2 normal. Regular rate and rhythm. ABDOMEN: Nontender, nondistended. EXTREMITIES: No clubbing, no cyanosis, no edema. INTEGUMENTARY SYSTEM: Positive for jaundice and positive for malaria rash on the back consistent with possible heat rash. IMAGING STUDIES: From yesterday MRCP shows no evidence of choledocholithiasis or intrahepatic or extrahepatic biliary duct dilatation, large burden of prominent gallstone with edema to gallbladder, please correlate with signs and symptoms of acute cholecystitis. LABORATORY VALUES: Total bilirubin has come down to 13.5, AST is down to 143, ALT is 153. Alkaline phosphatase is still at 541, trending down. ASSESSMENT: 1. Jaundice, possibly from gallstone. 2. Cholecystitis. PLAN: 1. Would be to consult surgery. Possible laparoscopic cholecystectomy today given the size of the gallbladder and edematous gallbladder. 2. Hepatitis. Serology for hepatitis A, B, and C are negative. Hepatitis possibly from cholestasis. Will continue monitoring the patient's LFTs until they trend down. Plan is to continue monitor the patient and possible surgery today. Further recommendations per clinical course. Job#: [id number]
--- NOTE | 2018-04-01 10:08 | NUR ---
Patient is A/OX3, breathing even and unlabored on room air. Bowel sounds present, patient had a small bowel movement this morning (04/01/18). Skin is intact and jaundiced. Patient has a small scab on left lateral calf. 1+ pitting bilateral ankle edema. Small red itchy bumps spread throughout patients back, Dr. Rene has been notified and checked the bumps himself, hydrocortisone is available. Patient is ambulatory. Call light in reach, bed in lowest position, wheels locked, side rails up x2. Will continue to monitor.
[2018-04-01 10:59] LABS: BILIRUBIN,DIRECT 8.8 mg/dL (0.0-0.5)
--- NOTE | 2018-04-01 12:11 | NUR ---
Patient left to OR for procedure.
[2018-04-01] MEDS ORDERED: BUPIVACAINE HCL 0.5% 10ML MPF VIAL INJ ONE (12:28)
[2018-04-01] MEDS ORDERED: IOPAMIDOL 610MG/1ML 300 MG/ML VIAL IV ONE (12:31)
[2018-04-01] MEDS ORDERED: ONDANSETRON HCL INJ 2 MG/ML VIAL IV PRN (13:45)
--- NOTE | 2018-04-01 14:34 | Operative Report ---
DATE OF PROCEDURE: April 01, 2018 PREOPERATIVE DIAGNOSES 1. Acute cholecystitis and cholelithiasis. 2. Jaundice. POSTOPERATIVE DIAGNOSES 1. Acute cholecystitis and cholelithiasis. 2. Jaundice. PROCEDURES 1. Diagnostic laparoscopy. 2. Laparoscopic cholecystectomy. 3. Intraoperative cholangiogram. 4. Percutaneous core needle biopsy of the liver. PAD TUFTER: None. ANESTHESIA: General. INDICATIONS AND FINDINGS: The patient is an 87-year-old male admitted to the hospital with jaundice. He was found to have gallstones with sludge in the gallbladder. At surgery, the patient was found to have a gallbladder that was very distended and edematous and contained multiple large stones with a stone impacting the gallbladder neck. The liver was discolored secondary to his jaundice. Intraoperative cholangiogram revealed no filling defects in the biliary tree with filling of the entire biliary tree, good flow into the duodenum and no obstruction. TECHNIQUE: After adequate general endotracheal anesthesia, with the patient in the supine position, the abdomen was prepped and draped in a sterile fashion with ChloraPrep solution. Skin in the umbilicus was infiltrated with 0.5% Marcaine. Incision was made in the umbilicus. Abdominal wall was elevated, and a Veress needle was introduced. Pneumoperitoneum was then created. A 10-mm trocar and cannula were then passed through the umbilical wound. Laparoscopic camera was introduced. Initial laparoscopy revealed discoloration of the liver secondary to jaundice. The gallbladder was very distended. Stomach and lower abdomen otherwise appeared normal. There was no free fluid. A 10-mm trocar and cannula were placed in the epigastrium, and two 5-mm trocars and cannulas were placed in the right upper quadrant. The gallbladder was distended and edematous. The fundus was grasped and retracted superiorly. There were adhesions involving the omentum over the neck and fundus of the gallbladder. These were lysed, staying close to the gallbladder. Neck of the gallbladder was completely dissected free. The cystic artery was identified, dissected free, and divided between Hemoclips close to the gallbladder. The neck of the gallbladder was completely dissected free. A clip was placed on the gallbladder-cystic duct junction. Percutaneously introduced cholangiocatheter was then used. Incision was made in the cystic duct, and a cholangiocatheter was passed in the cystic duct. Cholangiogram was done, which revealed good filling of the entire biliary tree. There were no filling defects seen. There was good flow into the duodenum. The cholangiocatheter was then removed. The epigastric cannula was changed to a 12-mm cannula, and the cystic duct was divided with an Endo CLAYTON stapler. The gallbladder was dissected free from the liver using scissors and electrocautery. Once it was entirely free, it was placed into an Endo pouch and brought out through the epigastric cannula. It contained multiple large stones. The gallbladder bed was inspected for hemostasis, which was seen to be adequate. Percutaneously introduced core biopsy needle was then used, and 2 core biopsies were taken from the right lobe of the liver. Hemostasis of the biopsy site was achieved with electrocautery. The gallbladder bed and peritoneal cavity were irrigated with saline and all fluid aspirated. It was inspected for hemostasis, which was seen to be adequate. Instruments and cannulas were then removed. Pneumoperitoneum was evacuated. Wounds were then closed. Fascia in the umbilical and epigastric wound closed with #0 Vicryl. Skin to all wounds closed with leeann. Sterile dressing was applied. Patient tolerated the procedure well. Estimated blood loss was 40 mL. There were no complications. All counts were correct. The patient was taken to the recovery room in satisfactory condition. Job#: [id number] cc:ISSA DRIVER MD
[2018-04-01] MEDS ORDERED: FENTANYL CITRATE/PF 100MCG/2 ML INJ ONE ×2 (14:35→18:48)
--- NOTE | 2018-04-01 15:25 | NUR ---
Patient returned from OR at this time. Patient is AAOx3. 4 trochar sites intact. Patient c/o pain. PRN pain meds to be given
[2018-04-01] MEDS: MORPHINE SULFATE INJ 4 MG/ML INJ IV PRN (15:35)
[2018-04-01] MEDS: HYDROCODONE/APAP 5MG-325MG TAB PO PRN (16:38)
[2018-04-01] MEDS: DEXTROSE 5%/0.45% SOD CHL 1,000 ML IV SCH ×2 (16:38→23:43)
--- NOTE | 2018-04-01 21:48 | NUR ---
pt states c/o sharp pain about an hour ago when he attemtped to do I/S. assessed trochar sites, no bleeding or swelling noted. pt went to restroom about 2140 and got back in bed. next to the epigastric trochar site, there is another puncture site that is weeping and open to air and has a hematoma, aapprox the size of a palm. notified dr pate. he stated the puncture site is from a needle puncture and to put a pressure dressing. placed a folded 4x4 over site and placed pressure tape on top of it
[2018-04-02] VITALS: BP 146/65
--- NOTE | 2018-04-02 00:40 | NUR ---
pt stating that he feels like "cant breathe due to pain". states pain is a 8/10. advised pt to call for pain med before his pian level is an 8. also states that his oxygen is low due to him "not breathing". placed pt on oxygen for reassurance. pt was satting 95% on room air. bilat lung sounds clear to ausculatation. reasurred pt to let the morphine work on his pain. also stating that when he takes a deep breath, his "brain tells him to stop breathing so deeply". another nurse reassured pt to take slow deep breaths and allow pain med to work.
[2018-04-02] MEDS: MORPHINE SULFATE INJ 4 MG/ML INJ IV PRN ×2 (00:42→03:16)
[2018-04-02] MEDS: HYDROCODONE/APAP 5MG-325MG TAB PO PRN (01:23)
--- NOTE | 2018-04-02 01:23 | NUR ---
observed pt from door. resp even, unlabored. pt appears comfortable. pt woke up and requested norco for pain. norco given.
--- NOTE | 2018-04-02 03:16 | NUR ---
pt given morphine for pian. states that hes now taking in "double the amount of air as he was taking in before". states hes breathing is better. states he will ask for morphine agian in 3 hours. no needs a tthis time. pain at resting 0/10; pain with deep breathing 7/10.
[2018-04-02 04:00] VITALS: BP 100/54
[2018-04-02 06:04] LABS: BASOPHILS % 0.1 % (0.0-1.0); HEMATOCRIT 29.2 % (38.2-49.6); HEMOGLOBIN 10.2 g/dL (14.0-18.0); LYMPHOCYTES # (AUTO) 1.1 (1.0-3.2); LYMPHOCYTES % 5.3 % (18.0-39.1); MEAN CORPUSCULAR HEMOGLOBIN 29.2 pg (28-32); MEAN CORPUSCULAR HGB CONC 34.9 g/dL (31-35); MEAN CORPUSCULAR VOLUME 83.7 fL (81-99); MONOCYTES # (AUTO) 1.7 (0.2-0.8); NEUTROPHILS # (AUTO) 18.3 (2.1-6.9); NEUTROPHILS % 85.9 % (38.7-80.0); PLATELET COUNT 295 x10e3/uL (140-360); RED BLOOD COUNT 3.49 x10e6/uL (4.3-5.7); RED CELL DISTRIBUTION WIDTH 20.3 % (11.7-14.4)
[2018-04-02] MEDS: PIPER-TAZ 3.375 GM 50 ML IV SCH ×3 (06:06→22:28)
[2018-04-02 06:20] LABS: ALBUMIN 2.1 g/dL (3.5-5.0); ALBUMIN/GLOBULIN RATIO 0.7 (0.8-2.0); ANION GAP 14.1 mmol/L (8-16); CALCIUM 8.6 mg/dL (8.4-10.2); CREATININE, SERUM 1.19 mg/dL (0.72-1.25); POTASSIUM 4.1 mmol/L (3.5-5.1)
--- NOTE | 2018-04-02 06:27 | NUR ---
DR DRIVER AT BEDSIDE. CT OF ABDOMEN ORDERED.
[2018-04-02] MEDS ORDERED: IOPAMIDOL 370 MG/ML 200 ML INFUS..BTL INJ ONE (06:44)
[2018-04-02] MEDS ORDERED: SODIUM CHLORIDE 0.9% 50ML 50 ML ONE (06:44)
--- NOTE | 2018-04-02 06:55 | NUR ---
Called Dr. Kimball to report AM lab results. Dr. Kimball decided to cancel ERCP procedure and resume patient's regular diet. Dr. Kimball also added and ordered AM labs (CBC, CMP, PT) for 04/04/18.
--- NOTE | 2018-04-02 07:30 | Progress Note ---
DATE: Patient is here for elevated LFTs, jaundice, cholecystitis, and gallstones. Currently, the patient underwent surgery yesterday, laparoscopic cholecystectomy. Had liver biopsy done too. In the evening, the patient did develop some tachypnea and some shortness of breath, and also draining and hematoma of the right upper extremity at the trocar site. A compression was done. The patient continues to be a little bit tachypneic, and therefore, was sent for CT scan. OBJECTIVE VITAL SIGNS: Temperature is 97.4, respirations of 18, pulse of 80, blood pressure is 100/54. HEENT: Normocephalic and atraumatic. Positive for icterus. CV: S1 and S2 normal. Regular rate and rhythm. ABDOMEN: Distended at the right upper quadrant. EXTREMITIES: No clubbing. No cyanosis. No edema. LABORATORY VALUES: White count is 21,000, hemoglobin of 10.2, hematocrit of 29.2. Neutrophil count was elevated at 85.9. Chemistry: Sodium of 134, potassium 4.1, BUN 26, creatinine of 1.98. Estimated GFR of 58. Glucose is 148. Total bilirubin 14.9, AST 137, ALT 149, alkaline phosphatase is 469. Amylase and lipase not done. Serology: All hepatitis panels have been negative. ASSESSMENT 1. Acute cholangitis: Status post cholecystectomy. 2. Elevated liver function tests and leukocytosis today: Status post surgery with questionable hematoma. PLAN: Do a CT scan. Continue monitoring his liver enzymes. Currently, the patient is on Zosyn. Will continue with that. Further recommendations per clinical course. Surgeon, Dr. Hong, has been notified. Job#: [id number] [place]
--- NOTE | 2018-04-02 07:51 | Diagnostic Imaging Report ---
PROCEDURE: CT ABDOMEN WITH CONTRAST TECHNIQUE: The abdomen was scanned utilizing a multidetector helical scanner from the diaphragm to the iliac crest after the IV administration of 100 cc of Isovue 370. Coronal and sagittal multiplanar reformations were obtained. Dose reduction techniques were utilized which include automated exposure control, adjustment of the mAs and/or kVP according to patient size, standardized low-dose protocol. DLP: 424.91 mGy-cm COMPARISON: [facility], CT, CT ABDOMEN/PELVIS W, 03/28/2018, 18:15. INDICATIONS: PAIN POST LIVER BX FINDINGS: LOWER THORAX: Bibasilar atelectasis. HEPATOBILIARY: No focal hepatic lesions. No biliary ductal dilatation. Clips in the gallbladder fossae. SPLEEN: No splenomegaly. PANCREAS: No focal masses or ductal dilatation. ADRENALS: No adrenal nodules. KIDNEYS: No hydronephrosis, stones, or solid mass lesions. PERITONEUM / RETROPERITONEUM: No free air. Minimal fluid inferior to the liver. LYMPH NODES: No lymphadenopathy. VESSELS: Calcification of the aorta. GI TRACT: Mild bowel distention likely secondary to a post operative ileus. BONES: Degenerative changes of the spine. SOFT TISSUES: Soft tissue air and intraperitoneal air related to the recent surgery. IMPRESSION: Post operative changes without evidence of abscess, acute abnormality or extravasation. Lucian Rodríguez D.O. Dictated by: Lucian Rodríguez D.O. on 04/02/2018 at 8:02 Electronically approved by: Lucian Rodríguez D.O. on 04/02/2018 at 8:02
[2018-04-02 09:43] VITALS: BP 97/59
[2018-04-02] MEDS: DEXTROSE 5%/0.45% SOD CHL 1,000 ML IV SCH ×2 (09:43→20:25)
[2018-04-02 12:11] VITALS: BP 110/55
--- NOTE | 2018-04-02 14:55 | NUR ---
Nutrition Screen Note RD Recommendation for Physician: - Recommend low fat diet Plan of Care: RD following, monitoring for tolerance and adequacy Nutrition reason for involvement: LOS Primary Diagnose(s): elevated LFT's, gallstones, jaundice PMH: OA Ht: 72 in Wt: 213 lb BMI: 28.9 kg/m2 IBW: [address] Assessment: (04/02) 87 YOM admitted for gallstones with sludge, pt POD #1 for lap cholecystectomy and tolerating regular diet. Pt with good appetite and intake, 75-100% of meals per chart. Pt reviewed during rounds, no nutrition issues reported. Pt sleeping at time of visit, unable to obtain hx and no family at bedside. No signs of malnutrition per physical assessment. Chart reviewed. Labs and meds reviewed, LFT's remain elevated. Will continue to monitor. Current Diet: Regular Malnutrition Evaluation (04/02/18) The patient does not meet criteria for a specified degree of malnutrition at this time. Will re-evaluate at follow-up as appropriate. Diet Education Needs Assessment: Diet education not indicated. Nutrition Care Level: Low Signed: Aileen Landon RD, LD, [facility]
[2018-04-02 17:33] VITALS: BP 141/61
--- NOTE | 2018-04-02 19:00 | NUR ---
Patient visited in room during nursing rounds. Patient alert and oriented x3. No distress or discomfort noted. Patient very jaundiced. IVF (D51/2NS at 100ml/hr) infusing. 4 Lap sites covered with band aid (C/D/I) and RUQ puncture (S/P liver biopsy) covered with layers of gauze appearing clean and dry. Call galdamez within reach. Will monitor closely.
[2018-04-02 20:00] VITALS: BP 119/64
--- NOTE | 2018-04-02 20:12 | NUR ---
Dr. Kimball came and saw patient in room. explained to patient plan of ERCP tomorrow (04/03/18) depending on lab results. Patient to be placed NPO at [facility] and will sign consent.
[2018-04-03] VITALS: BP 122/55
[2018-04-03 04:00] VITALS: BP 136/68
[2018-04-03 05:47] LABS: BASOPHILS # (AUTO) 0.1 (0.0-0.1); BASOPHILS % 0.3 % (0.0-1.0); EOSINOPHILS # (AUTO) 0.3 (0.0-0.4); EOSINOPHILS % 1.9 % (0.0-6.0); HEMATOCRIT 25.6 % (38.2-49.6); LYMPHOCYTES # (AUTO) 1.6 (1.0-3.2); LYMPHOCYTES % 11.5 % (18.0-39.1); MEAN CORPUSCULAR HEMOGLOBIN 28.8 pg (28-32); MEAN CORPUSCULAR HGB CONC 34.4 g/dL (31-35); MEAN CORPUSCULAR VOLUME 83.7 fL (81-99); MONOCYTES # (AUTO) 1.2 (0.2-0.8); NEUTROPHILS # (AUTO) 11.1 (2.1-6.9); NEUTROPHILS % 77.5 % (38.7-80.0); PLATELET COUNT 247 x10e3/uL (140-360); RED BLOOD COUNT 3.06 x10e6/uL (4.3-5.7); RED CELL DISTRIBUTION WIDTH 20.6 % (11.7-14.4)
[2018-04-03 06:05] LABS: ALANINE AMINOTRANSFERASE 131 IU/L (0-55); ALBUMIN/GLOBULIN RATIO 0.7 (0.8-2.0); ALKALINE PHOSPHATASE 406 IU/L (40-150); ANION GAP 11.5 mmol/L (8-16); BLOOD UREA NITROGEN 27 mg/dL (7-26); BUN/CREATININE RATIO 26 (6-25); CALCIUM 8.5 mg/dL (8.4-10.2); CARBON DIOXIDE 22 mmol/L (22-29); CHLORIDE 104 mmol/L (98-107); CREATININE, SERUM 1.02 mg/dL (0.72-1.25); EST GLOMERULAR FILTRATION RATE > 60 ML/MIN (60-); GLUCOSE 116 mg/dL (74-118); POTASSIUM 3.5 mmol/L (3.5-5.1); SODIUM 134 mmol/L (136-145)
[2018-04-03 06:19] LABS: HEMOGLOBIN 8.8 g/dL (14.0-18.0); INR 1.11; PROTHROMBIN TIME 15.3 seconds (11.9-14.5)
[2018-04-03] MEDS: PIPER-TAZ 3.375 GM 50 ML IV SCH ×3 (06:36→22:02)
[2018-04-03] MEDS: DEXTROSE 5%/0.45% SOD CHL 1,000 ML IV SCH ×2 (06:36→18:30)
--- NOTE | 2018-04-03 07:00 | NUR ---
Per Javi jewelry bench molder cancelled today. Patient on regular diet
--- NOTE | 2018-04-03 07:10 | NUR ---
Resting in bed, side rails upx3, call light within reach. Patient jaundice. Resting with eyes closed. Arousable to verbal stimuli. Respirations even and unlabored. Will continue to monitor.
--- NOTE | 2018-04-03 07:49 | Progress Note ---
DATE: SUBJECTIVE: The patient is an 87-year-old male, comes in with jaundice. The patient is currently status post laparoscopic cholecystectomy. No complaints today. Pain has dissipated. Does complain of some bloating. PHYSICAL EXAMINATION VITAL SIGNS: Temperature is 97.4, pulse of 87, respirations of 20, blood pressure is 136/68, pulse oximetry of 97%. HEENT: Icterus present. CVS: S1, S2 normal. Regular rhythm. ABDOMEN: Nontender, nondistended. Trocar site no bleeding. EXTREMITIES: No clubbing, no cyanosis and no edema. LABORATORY VALUES: White count is gone from 21 to 14.3, hemoglobin of 8.8, hematocrit of 25.6, platelet count is holding at 247,000, left shift is better. Chemistry: Sodium is 134, potassium of 3.5, chloride of 104, BUN of 27, creatinine of 1.02. The patient's total bilirubin is down from yesterday to 13.4. AST 114, better from 137. ALT 131, down from 149. Alkaline phosphatase still high at 406. Amylase and lipase are not done. Coags are normal. PT/PTT 13 and 15.3, INR of 1.11. ASSESSMENT: Cholestasis and jaundice status post cholecystectomy. The patient continues to have elevated bilirubin and elevated enzymes. Is scheduled for ERCP today, recommended. I will continue to monitor the patient and also continue checking his labs in the morning. Possible discharge tomorrow after ERCP. Further recommendations per clinical course. Will continue to monitor the patient along with Dr. Kimball and Dr. Hong. Job#: [id number]
[2018-04-03 08:00] VITALS: BP 135/63
--- NOTE | 2018-04-03 14:16 | NUR ---
CM SPOKE TO INTERDISCIPLINARY TEAM REGARDING PATIENT PLAN OF CARE. PATIENT WEANED FROM 2.0 L NC TO ROOM AIR. PATIENT USING INCENTIVE SPIROMETER AT BEDSIDE. PATIENT NOW ON REGULAR DIET AND BILI, AST, AND ALT ARE TRENDING DOWN SO ERCP HAS BEEN CANCELLED. PATIENT IS STABLE AND READY FOR DISCHARGE. PENDING CONSULTS TO CLEAR PATIENT AND ATTENDING TO ROUND FOR DISCHARGE PLAN.
[2018-04-03 15:10] VITALS: BP 168/76
[2018-04-03 15:29] LABS: ANION GAP 11.4 mmol/L (8-16); BLOOD UREA NITROGEN 24 mg/dL (7-26); BUN/CREATININE RATIO 26 (6-25); CALCIUM 8.9 mg/dL (8.4-10.2); CARBON DIOXIDE 24 mmol/L (22-29); CHLORIDE 103 mmol/L (98-107); CREATININE, SERUM 0.94 mg/dL (0.72-1.25); EST GLOMERULAR FILTRATION RATE > 60 ML/MIN (60-); GLUCOSE 94 mg/dL (74-118); POTASSIUM 3.4 mmol/L (3.5-5.1); SODIUM 135 mmol/L (136-145)
[2018-04-03 16:47] VITALS: BP 138/65
--- NOTE | 2018-04-03 19:12 | NUR ---
Resting in bed. No s/s of acute distress noted. Report given to oncoming nurse
[2018-04-03 20:00] VITALS: BP 144/68
[2018-04-04] VITALS: BP 131/67
[2018-04-04 04:00] VITALS: BP 134/71
[2018-04-04] MEDS: PIPER-TAZ 3.375 GM 50 ML IV SCH (05:59)
[2018-04-04] MEDS: DEXTROSE 5%/0.45% SOD CHL 1,000 ML IV SCH (05:59)
[2018-04-04 06:22] LABS: BASOPHILS # (AUTO) 0.1 (0.0-0.1); BASOPHILS % 0.5 % (0.0-1.0); EOSINOPHILS % 7.5 % (0.0-6.0); HEMATOCRIT 25.9 % (38.2-49.6); HEMOGLOBIN 8.9 g/dL (14.0-18.0); LYMPHOCYTES % 14.7 % (18.0-39.1); MEAN CORPUSCULAR HEMOGLOBIN 28.9 pg (28-32); MEAN CORPUSCULAR HGB CONC 34.4 g/dL (31-35); MEAN CORPUSCULAR VOLUME 84.1 fL (81-99); MONOCYTES % 7.7 % (4.4-11.3); NEUTROPHILS # (AUTO) 9.1 (2.1-6.9); NEUTROPHILS % 68.5 % (38.7-80.0); PLATELET COUNT 266 x10e3/uL (140-360); RED BLOOD COUNT 3.08 x10e6/uL (4.3-5.7); RED CELL DISTRIBUTION WIDTH 20.9 % (11.7-14.4)
[2018-04-04 06:27] LABS: INR 0.98; PROTHROMBIN TIME 13.9 seconds (11.9-14.5)
[2018-04-04 06:37] LABS: ALANINE AMINOTRANSFERASE 119 IU/L (0-55); ALBUMIN 1.9 g/dL (3.5-5.0); ALBUMIN/GLOBULIN RATIO 0.6 (0.8-2.0); ALKALINE PHOSPHATASE 409 IU/L (40-150); ANION GAP 9.6 mmol/L (8-16); BLOOD UREA NITROGEN 16 mg/dL (7-26); BUN/CREATININE RATIO 19 (6-25); CALCIUM 8.4 mg/dL (8.4-10.2); CARBON DIOXIDE 23 mmol/L (22-29); CHLORIDE 109 mmol/L (98-107); CREATININE, SERUM 0.83 mg/dL (0.72-1.25); EST GLOMERULAR FILTRATION RATE > 60 ML/MIN (60-); GLUCOSE 101 mg/dL (74-118); POTASSIUM 3.6 mmol/L (3.5-5.1); SODIUM 138 mmol/L (136-145)
[2018-04-04] MEDS ORDERED: DOCUSATE SODIUM 100 MG CAP PO ONE (07:00)
--- NOTE | 2018-04-04 07:19 | Progress Note ---
DATE: SUBJECTIVE: Patient is admitted for obstructive jaundice, status post lap jeny. Patient is currently doing well, no complaints except for pain to the surgical site and also constipation. PHYSICAL EXAMINATION: VITAL SIGNS: Today, temperature is afebrile 98.0, pulse 73, respiration of 18, blood pressure is 134/71, pulse oximetry of 100% on room air. HEENT: Normocephalic, atraumatic. Patient has icterus, but has come down. CVS: S1, S2 normal. Regular rate and rhythm. ABDOMEN: Nontender at the surgical site. EXTREMITIES: No clubbing, no cyanosis, no edema. LUNGS: Dependent crackles present. LABORATORY VALUES: White count has come down to 13,000; hemoglobin of 8.9; hematocrit of 25.9. Chemistries: Sodium 138, potassium is 3.6, chloride of 109, BUN 16, creatinine of 0.93. Total bili has come down to 11.6, AST 105, ALT 119, alkaline phosphatase still remains at 409. Pathology is still pending on the biopsy. Coags are normal, PT of 13.9 and INR of 0.98. ASSESSMENT: 1. Obstructive cholecystitis, status post laparoscopic cholecystectomy. Other etiologies including viral hepatitis and other hepatitis has not been ruled out completely. 2. Obstructive jaundice, better. 3. Leukocytosis, better. No left shift present. PLAN: Patient can be discharged home today. Increase water intake and also decrease fat intake has been advised. Patient will follow up with me in about a week's time. Further recommendations per clinical course, and also will start the patient on Colace 100 mg twice a day on discharge. Job#: [id number]
[2018-04-04] MEDS ORDERED: DOCUSATE SODIU100 MG PO (07:32)
[2018-04-04 08:03] VITALS: BP 125/61
--- NOTE | 2018-04-04 08:03 | NUR ---
Pt received sitting up in bed, aa/o x3, [place]. Seen by Dr Rene, new orders noted. Pt may d/c home today. Assessment complete, vss. Abd soft, no bm, +flatus. Denies any pain, encouraged to increase ambulation prior to d/c.
[2018-04-04 08:09] VITALS: BP 125/61
--- NOTE | 2018-04-04 10:50 | NUR ---
discharge instructions reviewed with pt and , all questions answered. discussed followup appts, no new rx ordered. #20iv removed from right hand with tip intact, pressure dressing applied.
--- NOTE | 2018-04-04 11:10 | NUR ---
Pt left floor via w/c
--- NOTE | 2018-04-08 07:33 | Diagnostic Imaging Report ---
PROCEDURE: INTRAOPERATIVE CHOLANGIOGRAM COMPARISON: Patients [facility], MRI, MRI MRCP WO, 03/31/2018, 9:27. INDICATIONS: Gallstones TECHNIQUE: Intraoperative cholangiogram was performed by Dr. Hong. A total of 4 abdominal spot radiographs from the procedure were made available for evaluation and saved to the medical record. FINDINGS:No intraluminal filling defects are identified. Free spill into the duodenum is present. No intrahepatic biliary dilatation. There is a small diverticulum of the distal common bile duct. Fluoroscopy time: 8 seconds Cumulative area dose product: 97.38 cGycm2 Cumulative air kerma: 5.98 mGy IMPRESSION: 1. Free spill into the duodenum without evidence of biliary dilatation are intraductal stones. 2. 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 Lucian Rodríguez D.O. Dictated by: Lucian Rodríguez D.O. on 04/08/2018 at 7:44 Electronically approved by: Lucian Rodríguez D.O. on 04/08/2018 at 7:44
== END 2018-04-04 11:10 | disposition home or self-care (01) | DRG 417 ==
LOC: ER 13:08 → ERHOLD 22:23 → MED/SURG 22:55
PROVIDERS: ADMIT Family Medicine; ATTEND Family Medicine
PROC: 0FB04ZX Excision of Liver, Percutaneous Endoscopic Approach, Diagnostic (ICD-10-PCS; 2018-04-01)
PROC: BF131ZZ Fluoroscopy of Gallbladder and Bile Ducts using Low Osmolar Contrast (ICD-10-PCS; 2018-04-01)
PROC: 0FT44ZZ Resection of Gallbladder, Percutaneous Endoscopic Approach (ICD-10-PCS; principal; 2018-04-01 12:00)
DX: K80.13 Calculus of gallbladder with acute and chronic cholecystitis with obstruction (principal); K83.1 Obstruction of bile duct; K83.09 Other cholangitis; N40.0 Benign prostatic hyperplasia without lower urinary tract symptoms; E87.6 Hypokalemia; D64.9 Anemia, unspecified
CPT/HCPCS: 36415; 71260; 74160; 74177; 74181; 74300; 76700; 78226; 78227; 80048; 80053; 80076; 82150; 82248; 82948; 83690; 85025; 85610; 85730; 88304; 88307; 88313; 99284; A9537; J1100; J2001; J2270; J2405; J2543; J2805; J3480; J7030; Q9967

== ENCOUNTER 2019-10-06 08:21 | Observation (INO) | payer OTHER ==
[~2019-10-06] VITALS: Ht 182.9 cm; Wt 95.7 kg
[~2019-10-06 08:21] MED LIST: DOCUSATE SODIU100 MG PO; ROPIVACAINE 246.25 MG, EPINEPHRINE HCL 1:1000 1ML 0.5 MG, CLONIDINE HCL 0.08 MG, KETORO... INJ ONE
[2019-10-06] MEDS ORDERED: CEFAZOLIN SOD 1 GM/NS 50ML 100 ML IV ONE (08:48)
[2019-10-06] MEDS ORDERED: GABAPENTIN 300 MG CAP ONE (08:48)
[2019-10-06] MEDS ORDERED: CELECOXIB 200 MG CAP ONE (08:48)
[2019-10-06] MEDS ORDERED: DEXAMETHASONE SOD PHOS 10 MG/1 ML VIAL ONE (08:53)
[2019-10-06] MEDS ORDERED: VANCOMYCIN HCL 1,000 MG ONE (09:09)
[2019-10-06] MEDS ORDERED: SODIUM CHLORIDE 0.9% 500ML 500 ML ONE (09:09)
[2019-10-06] MEDS ORDERED: TRANEXAMIC ACID 1,000 MG/10 ML ML ONE (09:09)
[2019-10-06] MEDS ORDERED: BACITRACIN 50,000 UNIT VIAL ONE (09:09)
[2019-10-06] MEDS ORDERED: ACETAMINOPHEN 650 MG SUPP PR PRN (10:45)
[2019-10-06] MEDS ORDERED: DOCUSATE SODIUM 100 MG CAP PO PRN (10:45)
[2019-10-06] MEDS ORDERED: HYDROCODONE/APAP 7.5MG-325MG 1 EA TAB PO PRN (10:45)
[2019-10-06] MEDS ORDERED: KETOROLAC TROMETHAMINE 30 MG/ML VIAL IV PRN (10:45)
[2019-10-06] MEDS ORDERED: HYDROCODONE/APAP 5MG-325MG TAB PO PRN (10:45)
[2019-10-06] MEDS ORDERED: ONDANSETRON HCL INJ 2MG/ML 2ML 2 MG/ML VIAL IV PRN (10:45)
[2019-10-06] MEDS ORDERED: ZOLPIDEM TARTRATE 5 MG TAB PO PRN (10:45)
[2019-10-06] MEDS ORDERED: DIPHENHYDRAMINE HCL INJ 50 MG/ML VIAL IV PRN (10:45)
--- NOTE | 2019-10-06 12:12 | Diagnostic Imaging Report ---
EXAMINATION: KNEE LEFT 1-2 VIEWS INDICATION: Postoperative COMPARISON: None FINDINGS: AP and lateral views of the left knee demonstrate immediate postoperative findings of left total knee replacement. Alignment is anatomic. No unexpected fracture. Soft tissue emphysema and small joint effusion. Atherosclerotic arterial calcifications. Surgical skin leeann in place. 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 Signed by: Sherrie Vazquez MD on 10/06/2019 12:09 PM
--- NOTE | 2019-10-06 12:40 | NUR ---
Recvd patient from PACU, AAOx3, Assisted him to bed, Left knee sx site is intact, denies any pain, call light in reach, no distress noted
[2019-10-06 13:00] VITALS: BP 140/74
[2019-10-06] MEDS ORDERED: SODIUM CHLORIDE 0.9% 1000ML 1,000 ML IV SCH (13:30)
--- NOTE | 2019-10-06 13:49 | Operative Report ---
DATE OF PROCEDURE: 10/06/2019 SURGEON: Dennis Kilgore MD SKY DIVER: Uriah Mixon, certified PA. PREOPERATIVE DIAGNOSIS: Osteoarthritis, left knee. POSTOPERATIVE DIAGNOSIS: Osteoarthritis, left knee. PROCEDURE: Left total knee arthroplasty. INDICATIONS: The patient is an active 88-year-old gentleman, who has severe end-stage arthritis of his left knee. He has failed conservative management and would like to proceed with a left total knee replacement. The risks and benefits of the procedure have been discussed. He states he understands and wishes to proceed. PROCEDURE IN DETAIL: The patient was brought to the operating room and placed under general anesthetic. He received a regional block, tranexamic acid, and prophylactic antibiotics in the holding area. His left lower extremity was prepped and draped in a sterile manner. A preoperative time-out was performed. The extremity was exsanguinated and a proximal tourniquet was inflated to 300 mmHg. An anterior incision with a medial parapatellar arthrotomy was performed. A large joint effusion of clear synovial fluid was evacuated. Marked synovitis was encountered. Soft tissue releases were performed to bring the knee up into flexion with the patella everted. A subtotal synovectomy was performed. The cruciate ligaments, meniscal remnants, and marginal osteophytes were all removed. A [employer] and [employer] knee system was used throughout the case. The proximal tibia was carefully exposed. An extramedullary cutting guide was used to resect the proximal tibia. The cut was referenced off the least affected lateral compartment. The medial compartment was down to polished subchondral bone. The tibial component was a size 7. The central fin punch was impacted and attention was directed towards the distal femur. An intramedullary cutting guide was used to resect the distal femur in 6 degrees of valgus and rotation referencing off a combination of landmarks including Whitesides line, the epicondylar axis, and the posterior condyles. The femoral component was also a size 7. The anterior and posterior cuts were made. A trial reduction was performed. A 9 mm ultracongruent tibial insert provided appropriate soft tissue balancing in full extension and 90 degrees of flexion. The patella was resurfaced with a 35 mm x 9 mm patellar button. The thickness was checked before and after resurfacing and was right at 26 mm. Patellar tracking was noted to be concentric. The trial implants were all removed. A 100 mL premixed pericapsular TRICIA injection was placed into the surrounding soft tissue. The wound was thoroughly irrigated with a shower tip pulsatile lavage. All bone cuts were also irrigated with a diluted spray mixture of diluted polymyxin and vancomycin spray. The components were cemented into place using a single mix of high viscosity Biomet cement. Care was taken to remove extravasated cement. The wound was further irrigated with a pulsatile lavage while the cement cured. The arthrotomy was then closed with interrupted #1 Ethibond. The knee was put through flexion and extension to ensure a secure closure. The skin was closed with subcuticular Vicryl and leeann. A sterile Aquacel bandage was applied. The patient was extubated and transported to the recovery room in stable condition. Blood loss was minimal. All needle and sponge counts were correct. Dennis Kilgore MD DR/STEPHAN /[id number]
[2019-10-06] MEDS ORDERED: BUPIVACAINE HCL 0.5% INJ 30 ML VIAL INJ ONE (14:40)
--- NOTE | 2019-10-06 15:15 | NUR ---
FAXED OP REPORT, FACESHEET AND ORDER TO [facility] [phone]. PER CHRISTIAN AT OFFICE PT AND HOME HEALTH ORDER WAS FAXED PRIOR, WILL NEED TO FAX H AND P WHEN GET IT.
--- NOTE | 2019-10-06 15:22 | NUR ---
DR RASHEED OFFICE PREARRANGED FOLLOWING DISCHARGE PLAN OF: HOME [address], [place] [address]; [phone] HOME HEALTH WITH [facility] CONFIRMED WITH [facility] [phone] DME 3 IN ONE COMMODE, CPM AND ROLLING WALKER WITH WHEELS. PROVIDED BY [email or web address] [facility] [phone] [place]OLL SIGNED AND ON CHART COPY LEFT WITH PATIENT GAVE CARD FOR QUESTIONS AND OR CONCERNS.
[2019-10-06 15:31] VITALS: BP 132/78
[2019-10-06 16:04] VITALS: BP 132/78
[2019-10-06] MEDS: CELECOXIB 200 MG CAP PO SCH (17:00)
[2019-10-06] MEDS: CEFAZOLIN SOD 1 GM/NS 50ML 50 ML IV SCH (17:30)
--- NOTE | 2019-10-06 17:50 | NUR ---
Patient refused Celebrex, and Cefazolin Antibiotic , he stated " It kills bad cells and good cells, I dont want to take it, I will talk to Dr Kilgore"
[2019-10-06] MEDS ORDERED: PROPOFOL IV EMULSION 10 MG/ML 20 ML VIAL ONE (18:37)
[2019-10-06] MEDS ORDERED: SEVOFLURANE INHAL SOLN 250 ML PEN BTL ONE (18:37)
[2019-10-06] MEDS ORDERED: ACETAMINOPHEN 1000 MG/100 ML IV ONE (18:37)
[2019-10-06] MEDS ORDERED: EPHEDRINE SULFATE INJ 50 MG/ML VIAL ONE (18:37)
[2019-10-06] MEDS ORDERED: ETOMIDATE 2 MG/ML 10 ML INJ IV ONE (18:37)
[2019-10-06] MEDS ORDERED: ONDANSETRON HCL INJ 2MG/ML 2ML 2 MG/ML VIAL ONE (18:37)
[2019-10-06] MEDS ORDERED: LIDOCAINE HCL 2% LOCAL INJ 5 ML SDV VIAL INJ ONE (18:37)
[2019-10-06] MEDS: ASPIRIN 325 MG TAB PO SCH (18:48)
[2019-10-06 20:00] VITALS: BP 135/81
--- NOTE | 2019-10-06 20:02 | NUR ---
PATIENT REQUESTED TO LEAVE CPM MACHINE ON AT THIS TIME BECAUSE IT IS "NOT BOTHERING ME." INCREASED FLEX ANGLE TO 55. PATIENT CONTINUES TO TOLERATE WELL.
[2019-10-06 20:34] VITALS: BP 135/81
[2019-10-07] VITALS: BP 125/70
[2019-10-07] MEDS: CEFAZOLIN SOD 1 GM/NS 50ML 50 ML IV SCH ×2 (01:30→09:10)
--- NOTE | 2019-10-07 01:40 | NUR ---
PATIENT AGAIN REFUSED IV ANTIBIOTICS, STATING HE BELIEVES THEY "KILL GOOD AND BAD CELLS, I NEED MY GOOD CELLS."
[2019-10-07 04:00] VITALS: BP 139/74
[2019-10-07 05:11] LABS: HEMATOCRIT 40.9 % (38.2-49.6); HEMOGLOBIN 13.4 g/dL (14.0-18.0)
--- NOTE | 2019-10-07 07:05 | NUR ---
RCD PT AT BED PT IS ALERT AND ORIENTED PT RESTING ON BED IV PATENT BY SALINE FLUSH BED LOW AND LOCKED CALL LIGHT IN REACH
[2019-10-07 08:19] VITALS: BP 122/68
[2019-10-07 08:23] VITALS: BP 122/68
--- NOTE | 2019-10-07 08:32 | Consultation ---
DATE OF CONSULTATION: REASON FOR CONSULTATION: Medical management. The patient is status post left knee replacement. HISTORY OF PRESENT ILLNESS: The patient is an 88 years male with osteoarthritis. The patient had right knee replacement approximately 10 years ago. He now is status post left knee replacement. The patient is otherwise stable. No chest pain or shortness of breath. Postoperative care. Blood pressure is stable. The patient is on pain medication. He is on physical therapy. PAST MEDICAL HISTORY: Osteoarthritis. PAST SURGICAL HISTORY: Left shoulder surgery, total right knee replacement, and tonsillectomy. SOCIAL HISTORY: The patient does not smoke or use alcohol. No regular drugs. ALLERGIES: NO KNOWN ALLERGIES. HOME MEDICATIONS: Pain medication. PHYSICAL EXAMINATION: VITAL SIGNS: Temperature is 98, blood pressure 139/74, pulse rate 70, respirations 18. GENERAL: The patient is not in acute distress. HEENT: Normocephalic and atraumatic. Anicteric. NECK: Supple. PULMONARY: Clear. CARDIOVASCULAR: Regular rate and rhythm. ABDOMEN: Soft and unremarkable. EXTREMITIES: No cyanosis or edema status post left knee replacement. NEUROLOGIC: No focal deficits. LABORATORY DATA: Hemoglobin is 13.4, hematocrit 40.9. IMPRESSION: 1. Status post left total knee replacement. 2. Osteoarthritis. 3. History of right knee replacement previously. PLAN: Continue with postoperative care. Aspirin for DVT prophylaxis. Discontinue IV fluids. Postop prophylactic antibiotics as planned. Continue with pain management. We will follow up with the patient and will send Dr. Ricardo Rene, the patient's primary care physician a postop updating information. MD BRITTANY Marcus/STEPHAN /[id number]
[2019-10-07] MEDS: CELECOXIB 200 MG CAP PO SCH (09:00)
[2019-10-07] MEDS: ASPIRIN 325 MG TAB PO SCH (09:00)
[2019-10-07] MEDS ORDERED: ACETAMINOPHEN 1000 MG/100 ML IV PRN (10:45)
[2019-10-07] MEDS ORDERED: ONDANSETRON HCL 4 MG ORAL DISINTEGRATING TAB PO PRN (11:00)
--- NOTE | 2019-10-07 11:45 | NUR ---
PATIENT WENT HOME IN SAFE CONDITION WITH HIS
== END 2019-10-07 11:45 | disposition home or self-care (01) ==
LOC: OR 08:21 → PACU V 10:42 → MED/SURG 12:54
PROVIDERS: ADMIT Specialist; ATTEND Specialist
DX: M17.0 Bilateral primary osteoarthritis of knee (principal); Z96.651 Presence of right artificial knee joint; K21.9 Gastro-esophageal reflux disease without esophagitis; Z85.820 Personal history of malignant melanoma of skin; Z11.59 Encounter for screening for other viral diseases; Z01.812 Encounter for preprocedural laboratory examination
CPT/HCPCS: 27447; 36415; 73560; 85014; 85018; 86850; 86900; 97110; 97116 ×2; 97161; G0378 ×2; J0131; J0171; J0690; J1100; J1885; J2001; J2405; J2704; J2795; J3370; J7030; J7040; U0002; 86920